=== PATIENT | male | born 1950 | race Caucasian/White ===

== ENCOUNTER 2017-08-21 16:01 | Inpatient (IN) | payer OTHER, MEDICARE ==
[2017-08-21 17:03] LABS: #Eosinphils 0.1 thou/uL (0.0-0.7); #Lymphocytes 1.6 thou/uL (1.20-3.40); #Monocytes 0.8 thou/uL (0.11-0.59); #Neutrophils 8.6 thou/uL (1.40-6.50); %Basophils 0.4 % (0.0-1.0); %Eosinophils 1.3 % (0.0-10.0); %Lymphocytes 14.1 % (21.0-51.0); %Monocytes 6.8 % (0.0-10.0); %Neutrophils 77.4 % (42.0-75.0); Hemoglobin 12.3 g/dL (14.0-18.0); Mean Corpuscular HGB CONC 33.9 g/dL (32.0-36.0); Mean Corpuscular Volume 97.5 fl (80.0-94.0); Mean Platelet Volume 6.6 fL (7.4-10.4); Platelet Count 363 thou/uL (130-400); RBC Distribution Width 11.7 % (11.5-14.5); Red Blood Cell (RBC) Count 3.74 mill/uL (4.70-6.10); White Blood Cell (WBC) Count 11.1 thou/uL (4.8-10.8)
[2017-08-21] MEDS ORDERED: Iopamidol 370 76% 50 ML VIAL FS ONE (17:10)
[2017-08-21] MEDS ORDERED: ISOVUE-370 76%-LOCM 1 ML ONE (17:10)
[2017-08-21 17:36] LABS: ALT (SGPT) 15 U/L (8-55); AST (SGOT) 24 U/L (5-34); Alkaline Phosphatase 59 U/L (40-150); Anion Gap 14 mmol/L (10-20); BUN (Urea Nitrogen) 17 mg/dL (8.4-25.7); Bilirubin, Total 0.3 mg/dL (0.2-1.2); Calc. Creatinine Clearance 0 mL/min (70-130); Calcium 8.9 mg/dL (7.8-10.44); Carbon Dioxide 29 mmol/L (23-31); Chloride 101 mmol/L (98-107); Estimated GFR-MDRD 84; Glucose 110 mg/dL (80-115); Lipase 69 U/L (8-78); Potassium 3.6 mmol/L (3.5-5.1); Sodium 140 mmol/L (136-145)
[2017-08-21] MEDS ORDERED: Lidocaine 2% Jelly 5 ML TUBE ONE ×2 (20:23→20:24)
--- NOTE | 2017-08-21 21:46 | CT ---
CT ABDOMEN AND PELVIS WITH IV CONTRAST 08/21/17 HISTORY: Abdominal pain, drainage from abdominal wound. COMPARISON: None available. FINDINGS: There is an irregular hypodense fluid collection in the right lower quadrant and extending into the r ight anterolateral aspect of the upper pelvis. The superior portion of this collection measures appro ximately 3.7 cm in diameter which is contiguous with a more irregularly shaped collection in the ante rolateral right abdomen measuring 8.4 cm x 2 cm. Brito of this collection demonstrate slight enhancem ent. This is probably represents an abscess collection. There are inflammatory changes within the ri ght lower quadrant. The appendix is not visualized on this examination. There is focus of subcutaneou s gas seen in the right anterolateral aspect of the pelvis with subcutaneous edema also present in th is region. There are gas densities seen within the right anterolateral pelvis adjacent to the irregul ar fluid collection. However, these gas densities could be related to an incompletely distended cecum or loop of small bowel, but given that there is no enhancement of bowel in this region, free intrap eritoneal gas or contained foci of gas in the right lower quadrant cannot be excluded. There are multiple dilated loops of small bowel with loops measuring up to 6 cm in diameter. No abrup t transition zone is present, but there is gradual tapering of the distal small bowel to more normal caliber. Findings may be related to ileus, although a partial small bowel obstruction is a differenti al consideration. Subcentimeter too small to characterize hypodense bilateral renal lesions are seen with multiple flui d attenuation cystic lesions associated with each kidney, largest in the superior pole left kidney me asuring 8.6 cm and largest in the inferior pole right kidney measuring 3.9 cm. Dome of the liver is not completely imaged. Liver is otherwise normal in appearance. There is bibasilar atelectasis. The spleen, pancreas, bilateral adrenal glands, and urinary bladder demonstrate a normal CT appearanc e. There are prominent fat containing bilateral inguinal hernias. There is mild subcutaneous edema se en at the level of the gluteal regions bilaterally. Vascular calcifications are present. IMPRESSION: 1. Irregular fluid collection in the right anterolateral aspect of the pelvis suggestive of absc ess collection. There are unopacified loops of bowel within the right lower quadrant which abut the a ezequiel of this fluid collection. While focus of free intraperitoneal gas cannot be entirely excluded, fi ndings are felt to more likely be related to decompressed loops of bowel adjacent to this irregular f luid collection and in the region of inflammatory changes. The appendix is not visualized on this exa m. 2. Subcutaneous gas and edema in the right anterolateral aspect of the pelvis. 3. Ileus versus a partial small bowel obstruction. 4. Bilateral renal cysts with subcentimeter too small to characterize bilateral hypodense renal lesions. 5. Colonic diverticulosis. 6. Subcutaneous edema and subcutaneous gas in the right anterolateral pelvis. 7. Above findings discussed with Dr. Biggs in the Emergency Department on 08/21/17 at [address] Patient provides history of ruptured appendicitis and prior surgery at an outside institution. POS: [facility]
[2017-08-21] MEDS ORDERED: Sodium Chloride 0.9% 1,000 ML IV SCH (22:12)
[2017-08-21] MEDS ORDERED: Ondansetron HCl/PF 4 MG/2 ML Vial IVP PRN (22:12)
[2017-08-21] MEDS: Piperacillin/Tazobactam 3.375 GM in Sodium Chloride 0.9% 100 ML IVPB SCH (22:29)
--- NOTE | 2017-08-21 22:29 | RAD ---
PORTABLE AP ABDOMINAL RADIOGRAPH 08/21/17 HISTORY: Small bowel obstruction, evaluate nasogastric tube positioning. FINDINGS: There is a nasogastric tube noted in place with the tip overlying the proximal body of the stomach. T here is gaseous distention of the stomach. Multiple dilated gas filled loops of small bowel are also visualized. Lower abdomen and pelvis are excluded from view. Contrast is seen in the renal collecting systems related to recent contrasted study. IMPRESSION: 1. Findings related to either ileus or partial small bowel obstruction. 2. Nasogastric tube noted in place with tip overlying the proximal body of the stomach. POS: [facility]
[2017-08-21 22:35] VITALS: BMI 26.2
[2017-08-22] MEDS: Piperacillin/Tazobactam 3.375 GM in Sodium Chloride 0.9% 100 ML IVPB SCH (04:22)
[2017-08-22] MEDS ORDERED: Morphine 4 MG/ML Carpuject SLOW IVP PRN (07:34)
[2017-08-22] MEDS ORDERED: Ondansetron HCl/PF 4 MG/2 ML Vial IVP PRN (07:34)
--- NOTE | 2017-08-22 07:45 | HP ---
CHIEF COMPLAINT: Abdominal wound drainage. HISTORY OF PRESENT ILLNESS: This is a 66-year-old male who about 8 days ago underwent a laparoscopic appendectomy in [place]. He was found to have a ruptured appendix and it was converted to an open procedure. He was in the hospital for 4 days with a drain and antibiotics. They pulled the dr mckinney prior to discharge. He said at home, he was given oral antibiotics. He continued to be distende d and sore and had some vomiting yesterday. He also passed a little bit of flatus last night. PAST MEDICAL HISTORY: Glaucoma, nephritis, obesity. PAST SURGICAL HISTORY: The recent appendectomy, knee surgery x3, rotator cuff laminectomy x2. MEDICATIONS: He is on a glaucoma medicine. ALLERGIES: No known drug allergies. SOCIAL HISTORY: He is . Uses oral tobacco, 1/2 can daily. Occasional alcohol. FAMILY HISTORY: Diverticulitis and heart disease. PHYSICAL EXAMINATION: VITAL SIGNS: Temperature 98.4, pulse 80, blood pressure 146/72. GENERAL: He is an obese male, awake, alert, in no apparent distress. HEENT: Unremarkable. He has an NG in place, 150 mL out. LUNGS: Clear. HEART: Regular rate and rhythm. ABDOMEN: Obese, distended, rare bowel sounds. Wounds are okay. LABORATORY DATA AND IMAGING: White count 11.1. CT shows a 3 x 8 cm abscess. ASSESSMENT: Right lower quadrant abscess. PLAN: Percutaneous drainage.
[2017-08-22] MEDS ORDERED: FLU VACC TS2017-18 (>65YR) 0.5 ML SYRINGE IM ONE (09:00)
[2017-08-22] MEDS: Meropenem 2 GM in Sodium Chloride 0.9% 100 ML IVPB SCH ×3 (09:23→23:37)
[2017-08-22] MEDS: D5 1/2 NS w/20 mEq KCL 1,000 ML IV SCH ×3 (09:24→20:25)
[2017-08-22 09:53] LABS: INR-International Normal Ratio 1.3; PTT 33.2 SEC (22.9-36.1); Prothrombin Time 16.6 SEC (12.0-14.7)
[2017-08-22] MEDS ORDERED: Sodium Bicarbonate 2.4 MEQ/5 ML ONE (11:02)
[2017-08-22] MEDS ORDERED: Midazolam HCl 2 mg/2 ml Vial ONE (11:02)
[2017-08-22] MEDS ORDERED: Fentanyl 100 MCG/2 ML VIAL ONE (11:02)
[2017-08-22 12:37] LABS: BF Color Red; Clarity Cloudy/Turbid (Clear); RBC Background Count 0.003; RBC Count-Automated 60000 /cumm; Tube # EDTA; WBC/NonHematic-Auto 299 /cumm
[2017-08-22 13:08] LABS: BF Segmented Neutrophils 95 %; Cell Count Non Hematic 3 %; Eosinophils 1 %; Lymphocytes 1 %
--- NOTE | 2017-08-22 14:45 | CT ---
CT GUIDED ABDOMINAL ABSCESS DRAINAGE: CONSCIOUS SEDATION: Versed 1 mg IV, Fentanyl 1 mg IV. HISTORY: Abdominal abscess. Ruptured appendicitis. FINDINGS: After explaining the procedure and answering all questions, limited CT imaging of the abdomen was per formed. Sterile technique, buffered local anesthesia, conscious sedation, CT guidance, and an anteri or right lower quadrant approach were used to carefully advance a 19-gauge needle to the fluid pocket in the anterior aspect of the right lower quadrant. Guidewire was placed to hold position. Tract w as dilated to 8 [place]. An 8 [place] locking loop drain was then placed in the abscess cavity. It wa s secured externally and left draining to gravity. A small amount of purulent material was aspirated and sent to pathology. The patient tolerated the procedure well and was returned in unchanged condi tion. IMPRESSION: Technically successful CT-guided abdominal abscess drainage. Pathology is pending. POS: [facility]
[2017-08-23 05:55] LABS: #Eosinphils 0.2 thou/uL (0.0-0.7); #Lymphocytes 0.9 thou/uL (1.20-3.40); #Monocytes 0.7 thou/uL (0.11-0.59); #Neutrophils 7.8 thou/uL (1.40-6.50); %Basophils 0.2 % (0.0-1.0); %Eosinophils 2.3 % (0.0-10.0); %Lymphocytes 9.8 % (21.0-51.0); %Monocytes 6.7 % (0.0-10.0); Hemoglobin 11.3 g/dL (14.0-18.0); Mean Corpuscular Hemoglobin 32.7 pg (27.0-31.0); Platelet Count 325 thou/uL (130-400); RBC Distribution Width 11.9 % (11.5-14.5); Red Blood Cell (RBC) Count 3.45 mill/uL (4.70-6.10); White Blood Cell (WBC) Count 9.6 thou/uL (4.8-10.8)
[2017-08-23] MEDS: D5 1/2 NS w/20 mEq KCL 1,000 ML IV SCH ×2 (06:03→15:34)
[2017-08-23 06:19] LABS: Anion Gap 9 mmol/L (10-20); BUN (Urea Nitrogen) 15 mg/dL (8.4-25.7); Calc. Creatinine Clearance 102 mL/min (70-130); Calcium 8.2 mg/dL (7.8-10.44); Carbon Dioxide 26 mmol/L (23-31); Chloride 108 mmol/L (98-107); Estimated GFR-MDRD 86; Glucose 132 mg/dL (80-115); Potassium 3.9 mmol/L (3.5-5.1); Sodium 139 mmol/L (136-145)
[2017-08-23] MEDS: Meropenem 2 GM in Sodium Chloride 0.9% 100 ML IVPB SCH ×2 (08:15→16:03)
[2017-08-23] MEDS ORDERED: Acetaminophen 1,000 MG in Premix Bag 1 BAG IVPB PRN (09:52)
--- NOTE | 2017-08-23 09:56 | PDOC.GSPN ---
Surgery Progress Note: Subj - Subjective Patient reports: feels better Narrative: s/p perc drain. no nausea, had two bowel movements Surgery Progress Note: Obj - Vital signs Vital signs: Vital Signs - Most Recent Temp Pulse Resp BP Pulse Ox 98.6 F 71 18 156/76 H 94 L 08/23/17 08:48 08/23/17 08:48 08/23/17 08:48 08/23/17 07:44 08/23/17 08:48 - Physical Exam General: no distress Cardiovascular: regular rate and rhythm Respiratory: clear to auscultation Abdomen: soft, distended (occasional bowel sounds) Surgery Progress Note: Results - Labs Result Diagrams: 08/23/17 04:34 08/23/17 04:34 Lab results: Laboratory Results - last 24 hr 08/23/17 08/23/17 04:34 04:34 WBC 9.6 RBC 3.45 L Hgb 11.3 L Hct 34.1 L MCV 99.0 H MCH 32.7 H MCHC 33.0 RDW 11.9 Plt Count 325 MPV 7.0 L Neutrophils % 81.0 H Lymphocytes % 9.8 L Monocytes % 6.7 Eosinophils % 2.3 Basophils % 0.2 Neutrophils # 7.8 H Lymphocytes # 0.9 L Monocytes # 0.7 H Eosinophils # 0.2 Basophils # 0.0 Sodium 139 Potassium 3.9 Chloride 108 H Carbon Dioxide 26 Anion Gap 9 L BUN 15 Creatinine 0.88 Estimated GFR (MDRD) 86 Glucose 132 H Calcium 8.2 Surgery Progress Note: A/P - Problem (1) Appendiceal abscess Current Visit: Yes Code(s): K35.3 - ACUTE APPENDICITIS WITH LOCALIZED PERITONITIS Status: Acute Assessment and Plan: s/p perc drain, dc NG, start liquids tomorrow if no nausea. On meropenum
[2017-08-24] MEDS: Meropenem 2 GM in Sodium Chloride 0.9% 100 ML IVPB SCH ×4 (00:02→21:52)
[2017-08-24] MEDS: D5 1/2 NS w/20 mEq KCL 1,000 ML IV SCH ×2 (00:03→10:53)
[2017-08-24] MEDS ORDERED: D5 1/2 NS w/20 mEq KCL 1,000 ML IV SCH (09:04)
--- NOTE | 2017-08-24 09:04 | PDOC.GSPN ---
Surgery Progress Note: Subj - Subjective Patient reports: no new complaints Narrative: No nausea Surgery Progress Note: Obj - Vital signs Vital signs: Vital Signs - Most Recent Temp Pulse Resp BP Pulse Ox 98.3 F 70 18 163/75 H 97 08/24/17 08:15 08/24/17 08:15 08/24/17 08:15 08/24/17 08:00 08/24/17 08:15 - Physical Exam General: no distress Respiratory: clear to auscultation Abdomen: soft, non tender, positive bowel sounds Wound: healing well Surgery Progress Note: Results - Labs Result Diagrams: 08/23/17 04:34 08/23/17 04:34 Surgery Progress Note: A/P - Problem (1) Appendiceal abscess Current Visit: Yes Code(s): K35.3 - ACUTE APPENDICITIS WITH LOCALIZED PERITONITIS Status: Acute Assessment and Plan: Try liquid diet today, TKO IVF
[2017-08-24] MEDS ORDERED: Ondansetron ODT 4 MG TAB PO PRN (12:51)
[2017-08-24] MEDS ORDERED: HYDROcodone/Acetaminophen 10/325 mg Tablet PO PRN (12:52)
[2017-08-24] MEDS: Acetaminophen 325 MG TAB PO PRN (14:59)
[2017-08-24] MEDS: metroNIDAZOLE 500 MG TAB PO SCH (20:06)
[2017-08-25] MEDS: Acetaminophen 325 MG TAB PO PRN (00:22)
[2017-08-25] MEDS: Meropenem 2 GM in Sodium Chloride 0.9% 100 ML IVPB SCH (09:12)
[2017-08-25] MEDS: metroNIDAZOLE 500 MG TAB PO SCH (09:15)
[2017-08-25 09:31] VITALS: BP 140/66; TEMP 98.3
--- NOTE | 2017-08-25 11:36 | DIS ---
DISCHARGE DIAGNOSIS: Post-appendectomy peritoneal abscess. PROCEDURES DURING ADMISSION: Percutaneous drainage of peritoneal abscess, IV antibiotics. HOSPITAL COURSE: Patient was admitted. CT scan showed an abscess. He underwent a percutaneous drai nage. Postprocedure, he is doing well. Pain is well controlled. He is not taking any medicines. T he culture grew out yeast. He is discharged home on doxycycline 100 p.o. b.i.d. for 14 days and Difl ucan 100 p.o. daily for 10 days. He will follow up with me in 3 days. He is going to continue to griffin ve the drain and monitor drain output.
== END 2017-08-25 11:23 | disposition home or self-care (01) | DRG 862 ==
LOC: ERS 16:01 → SJJU 21:07 → SURG A 08-23 11:58
PROVIDERS: ADMIT Surgery; ATTEND Surgery
PROC: 0W9G30Z Drainage of Peritoneal Cavity with Drainage Device, Percutaneous Approach (ICD-10-PCS; principal; 2017-08-22)
DX: T81.4XXA Infection following a procedure, initial encounter (principal); K65.1 Peritoneal abscess; B37.9 Candidiasis, unspecified; H40.9 Unspecified glaucoma; F17.220 Nicotine dependence, chewing tobacco, uncomplicated; E66.9 Obesity, unspecified; Z98.890 Other specified postprocedural states; Z68.26 Body mass index [BMI] 26.0-26.9, adult
CPT/HCPCS: 36415; 49020; 71045; 74018; 74177; 77002; 80048; 80053; 83690; 85025; 85060; 85610; 85730; 87040; 87070; 87205; 89051; 90471; 90682; 96365; 99152; 99153; A4216; C1729; G0008; J0131; J2185; J2250; J2270; J2405; J2543; J3010; J7050; Q2036

== ENCOUNTER 2017-08-31 18:36 | Emergency (ER) | payer OTHER, MEDICARE ==
[2017-08-31] MEDS ORDERED: Famotidine 20 MG TAB ONE (19:40)
[2017-08-31] MEDS ORDERED: diphenhydrAMINE 25 MG CAP ONE (19:40)
--- NOTE | 2017-08-31 22:34 | ULT ---
BILATERAL LOWER EXTREMITY VENOUS DUPLEX EXAM: Date: 08/31/17 HISTORY: lower extremity pain and edema. FINDINGS: Deep veins of both lower extremities evaluated with ultrasound, color Doppler, spectral analysis, and compression. Deep veins of both lower extremities show normal blood flow and compression. No evidence of deep veno us thrombosis. IMPRESSION: No evidence of deep venous thrombosis identified in either lower extremity. POS: [facility]
== END 2017-08-31 21:27 | disposition home or self-care (01) ==
LOC: ERS 18:36
DX: T78.3XXA Angioneurotic edema, initial encounter (principal); F17.220 Nicotine dependence, chewing tobacco, uncomplicated; Z79.899 Other long term (current) drug therapy
CPT/HCPCS: 93005; 93970